=== PATIENT | female | born 1995 | race African-American/Black ===

== ENCOUNTER 2017-02-14 15:50 | Emergency (ER) | payer SELFPAY ==
[2017-02-14] MEDS: HYDROcodone/APAP 5/325MG 1 TAB TABLET PO (17:28)
[2017-02-15 06:52] LABS: URINE HCG POC HCG NEGATIVE (Negative)
== END 2017-02-14 18:18 | disposition home or self-care (01) ==
LOC: ER 15:50
DX: S02.5XXA Fracture of tooth (traumatic), initial encounter for closed fracture (principal); R04.0 Epistaxis; W01.198A Fall on same level from slipping, tripping and stumbling with subsequent striking against other object, initial encounter; Y93.89 Activity, other specified; Y92.89 Other specified places as the place of occurrence of the external cause; Y99.8 Other external cause status
CPT/HCPCS: 70450; 70486; 81025; 99284-25

== ENCOUNTER 2020-03-01 20:30 | Emergency (ER) | payer BC ==
[~2020-03-01] VITALS: Ht 157.5 cm; Wt 56.4 kg
[~2020-03-01 20:30] MED LIST: AMOX500T PO; BENZ100C PO; IBUP-1007 PO; IBUP-1060 PO; OXYM30SP25 NS
[2020-03-01 21:05] VITALS: BP 124/70
--- NOTE | 2020-03-01 21:44 | RAD ---
ADDENDUM #1 There is a nondisplaced fracture at the lateral aspect of the distal radial metaphysis. FOR INTERNAL CODING PURPOSES Critical result: Findings discussed with ER provider at 03/01/2020 9:49 PM. RESULT CODE: (C) Electronically signed by: Courtney Peña MD (03/01/2020 9:49 PM) [facility] ORIGINAL REPORT Exam: Left wrist 3 views INDICATION: Crush injury TECHNIQUE: Frontal, lateral and oblique views of the left wrist Comparisons: None FINDINGS: Bone mineralization is normal. No acute or healed fractures. Soft tissues are unremarkable. Joint spa jeremie are well-maintained. IMPRESSION: No acute osseous abnormality. Electronically signed by: Courtney Peña MD (03/01/2020 9:42 PM) [facility]
--- NOTE | 2020-03-01 22:39 | ED.ADGEN ---
Past Medical History Past Medical History: No Pertinent History Past Surgical History: Tonsillectomy Smoking Status: Current Every Day Smoker Alcohol Use: None Drug Use: None General Adult EDM: Chief Complaint: WRIST PAIN HPI: HPI: Patient is a 25 year old AA female who presents emergency department with com plaints of lateral left wrist pain after accidentally shutting her wrist in a car door. She denies any numbness, tingling, or weakness of the affected extremity but reports that she is unable to bend her wrist. She denies any decreased sensation or inability to move her fingers. Patient is dominantly right-handed. She currently rates her pain 8 out of 10 on the pain scale, she denies any alleviating factors. Review of Systems: Review of Systems: Complete ROS is negative unless otherwise noted in HPI. Allergies: Allergies: Allergies Coded Allergies Type Severity Reaction Last Updated Verified No Known Drug Allergies 01/13/13 No Physical Exam: PE: See Above Constitutional: Well developed, well nourished, no acute distress, non-toxic appearance. [] HENT: Normocephalic, atraumatic, bilateral external ears normal, nose normal. [] Eyes: PERRLA, EOMI, conjunctiva normal, no discharge. [] Neck: Normal range of motion, no stridor. [] Cardiovascular:Heart rate regular rhythm Lungs & Thorax: Respirations even and unlabored, no retractions, no respiratory distress Skin: Warm, dry, no erythema, no rash. [] Extremities: Left wrist: Lateral tenderness to palpation without crepitus or obvious deformity, 1+ edema, 2+ radial pulse, cap refill less than 2 seconds, no cyanosis, ROM limited due to pain Neurologic: Alert and oriented X 3, no focal deficits noted. [] Psychologic: Affect normal, judgement normal, mood normal. [] Current Patient Data: Labs: Laboratory Tests Test 03/01/20 20:47 POC Urine HCG, Qualitative Hcg negative (Negative) Vital Signs: Vital Signs Date Time Temp Pulse Resp B/P (MAP) Pulse Ox O2 Delivery O2 Flow Rate FiO2 03/01/20 21:05 99.1 82 18 124/70 (88) 99 Room Air 99.1 EKG: EKG: [] Heart Score: Risk Factors: Risk Factors: DM, Current or recent (<one month) smoker, HTN, HLP, family history of CAD, obesity. Risk Scores: Score 0 - 3: 2.5% MACE over next 6 weeks - Discharge Home Score 4 - 6: 20.3% MACE over next 6 weeks - Admit for Clinical Observation Score 7 - 10: 72.7% MACE over next 6 weeks - Early Invasive Strategies Radiology/Procedures: Radiology/Procedures: PROCEDURE: WRIST 3V LEFT ADDENDUM #1 There is a nondisplaced fracture at the lateral aspect of the distal radial metaphysis. FOR INTERNAL CODING PURPOSES Critical result: Findings discussed with ER provider at 03/01/2020 9:49 PM. RESULT CODE: (C) Electronically signed by: Courtney Peña MD (03/01/2020 9:49 PM) [facility]IGINAL REPORT Exam: Left wrist 3 views INDICATION: Crush injury TECHNIQUE: Frontal, lateral and oblique views of the left wrist Comparisons: None FINDINGS: Bone mineralization is normal. No acute or healed fractures. Soft tissues are unremarkable. Joint spaces are well-maintained. IMPRESSION: No acute osseous abnormality. Electronically signed by: Courtney Peña MD (03/01/2020 9:42 PM) [facility] [] Course & Med Decision Making: Course & Med Decision Making Pertinent Labs and Imaging studies reviewed. (See chart for details) [] Dragon Disclaimer: Dragon Disclaimer: This electronic medical record was generated, in whole or in part, using a voice recognition dictation system. Departure Departure Impression: Primary Impression: Closed left radial fracture Disposition: 01 DC HOME SELF CARE/HOMELESS Condition: STABLE Referrals: NO PCP (PCP) ANT PAEZ MD Patient Instructions: Wrist Fracture, [id number] Additional Instructions: Fill prescription(s) and use as directed. Recommend application of ice, elevation, and rest of affected extremity. Wear the splint that was placed until follow up appointment with Dr. Paez next week, call for an appointment. Return to the ER if your symptoms worsen. Scripts Hydrocodone Bit/Acetaminophen (HYDROCODONE-APAP 5-325 ) 1 Tab Tablet 0.5-1 TAB PO PRN Q6HRS PRN for SEVERE PAIN 7-10, #10 TAB 0 Refills Prov: MARIAELENA GREY [employer] 03/01/20 Splinting Splinting : Location: L wrist Pre-Made Type: velcro Splint: wrist Pre-Proc Neuro Vasc Exam: normal Post-Proc Neuro Vasc Exam: normal, unchanged from pre-exam Problem Qualifiers Primary Impression: Closed left radial fracture Encounter type: initial encounter Radius location: distal Fracture morphology: other fracture Qualified Codes: S52.592A - Other fractures of lower end of left radius, initial encounter for closed fracture MARIAELENA GREY [employer] Mar 01, 2020 22:39
[2020-03-01] MEDS ORDERED: HYDR-2761 PO (22:41)
== END 2020-03-01 22:45 | disposition home or self-care (01) ==
LOC: ER 20:30
DX: S52.592A Other fractures of lower end of left radius, initial encounter for closed fracture (principal); F17.200 Nicotine dependence, unspecified, uncomplicated; W23.0XXA Caught, crushed, jammed, or pinched between moving objects, initial encounter; Y93.89 Activity, other specified; Y92.89 Other specified places as the place of occurrence of the external cause; Y99.8 Other external cause status
CPT/HCPCS: 29125; 73110; 81025; 99283